=== PATIENT | female | born 1975 | race Caucasian/White ===

== ENCOUNTER 2021-12-13 09:58 | Inpatient (IN) | payer MEDICAID ==
[~2021-12-13] VITALS: Ht 144.8 cm; Wt 65.3 kg
[2021-12-13 10:03] VITALS: BP 176/99
--- NOTE | 2021-12-13 10:13 | NUR ---
Patient wheelchair assisted to bed 1.
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
[2021-12-13 11:25] LABS: BASOPHILS # (AUTO) 0.1 K/uL (0.00-0.22); BASOPHILS % (AUTO) 0.3 % (0.0-2.0); EOSINOPHILS # (AUTO) 0.1 K/uL (0-0.4); EOSINOPHILS % (AUTO) 0.4 % (0.0-4.0); HEMATOCRIT 35.7 % (36-48); HEMOGLOBIN 11.8 g/dL (12.0-16.0); LYMPHOCYTES # (AUTO) 3.1 K/uL (2.5-16.5); LYMPHOCYTES % (AUTO) 18.8 % (20.5-51.1); MEAN CORPUSCULAR HEMOGLOBIN 29 pg (27-31); MEAN CORPUSCULAR HGB CONC 33 g/dL (33-37); NEUTROPHILS # (AUTO) 12.1 K/uL (1.8-7.7); NEUTROPHILS % (AUTO) 74.5 % (42.2-75.2); PLATELET COUNT (AUTO) 528 K/uL (140-450); RED BLOOD CELL COUNT(AUTO) 4.05 MIL/uL (4.20-5.40); RED CELL DISTRIBUTION WIDTH 12.1 % (11.6-13.7); WHITE BLOOD COUNT (AUTO) 16.2 K/uL (4.8-10.8)
[2021-12-13 11:28] LABS: ALBUMIN 2.9 g/dL (3.4-5.0); ANION GAP 15.4 (8-16); CARBON DIOXIDE 26.2 mmol/L (21-32); CREATININE 0.8 mg/dL (0.6-1.3); POTASSIUM 3.6 mmol/L (3.5-5.1); TOTAL BILIRUBIN 0.4 mg/dL (0.0-1.0)
[2021-12-13] MEDS ORDERED: NACL 0.9% 2,000 ML IV ONE (11:45)
[2021-12-13] MEDS ORDERED: VANCOMYCIN PER PHARMACY MC PRN ×2 (11:45→12:45)
[2021-12-13] MEDS ORDERED: PIPERACILLIN/TAZOBACTAM 3.375 GM in DEXTROSE 5% 50 ML IV ONE (11:45)
[2021-12-13] MEDS ORDERED: MORPHINE SULFATE 4 MG/ML SYR IVP ONE (11:45)
[2021-12-13] MEDS ORDERED: ONDANSETRON 4 MG/2 ML VIAL IVP ONE (11:45)
[2021-12-13] MEDS ORDERED: VANCOMYCIN 1GM/DEXT 5% PREMIX 200 ML IV ONE (11:45)
[2021-12-13 11:59] LABS: APPEARANCE,URINE CLEAR (CLEAR); BILIRUBIN,URINE NEGATIVE (NEGATIVE); BLOOD, URINE TRACE-I (NEGATIVE); COLOR,URINE YELLOW (YELLOW); LEUKOCYTE ESTERASE ,URINE NEGATIVE (NEGATIVE); NITRITE, URINE NEGATIVE (NEGATIVE); PH,URINE 6.5 (5.0-9.0); UGLUCOSE 3+ (NEGATIVE)
[2021-12-13] MEDS ORDERED: VANCOMYCIN 1,000 MG VIAL ONE (12:04)
[2021-12-13] MEDS ORDERED: PIPERACILLIN/TAZOBACTAM 3.375 GM VIAL IV ONE (12:05)
[2021-12-13 12:15] LABS: RBC,URINE 0-5 /HPF (0-5)
[2021-12-13 12:16] LABS: WBC,URINE 0-5 /HPF (0-5)
[2021-12-13] MEDS ORDERED: ONDANSETRON 4 MG/2 ML VIAL IVP PRN (12:40)
[2021-12-13] MEDS ORDERED: LORazepam 2 MG/ML VIAL IVP PRN (12:40)
[2021-12-13] MEDS ORDERED: DOCUSATE SODIUM 100 MG GELCAP PO PRN (12:40)
[2021-12-13] MEDS ORDERED: POTASSIUM CHLORIDE 10 MEQ TABER PO PRN (12:40)
[2021-12-13] MEDS ORDERED: ZOLPIDEM 10 MG TAB PO PRN (12:40)
[2021-12-13] MEDS ORDERED: DEXTROSE 50% 50 ML SYR IVP PRN (12:45)
[2021-12-13] MEDS: NACL 0.9% 1,000 ML IV SCH ×2 (13:36→20:16)
--- NOTE | 2021-12-13 13:53 | NUR ---
WOUND PICTURES TAKEN, SIGNED BY DR GAMBOA AND PLACED IN CHART.
[2021-12-13] MEDS: MORPHINE SULFATE 2 MG/ML SYR IVP PRN ×2 (15:23→20:16)
--- NOTE | 2021-12-13 16:00 | NUR ---
PT RESTING IN RNEY NO CHANGES NOTED.
[2021-12-13] MEDS: BLOOD GLUCOSE MONITORING 1 DEV DEV FS SCH ×2 (17:15→21:08)
[2021-12-13 18:20] VITALS: BP 159/73
--- NOTE | 2021-12-13 18:20 | NUR ---
RECEIVED PATIENT FROM ER NURSE FOR CONTINUITY OF CARE. PT ADMITTED FOR CELLULITIS OF LEFT FOOT. PT IS AOX4, ABLE TO MAKE NEEDS KNOWN. ON ROOM AIR AND NO DISTRESS NOTED. SKIN IS WARM, DRY, AND NON-INTACT. NOTED WOUND ON LEFT FOOT. NO DRAINAGE NOTED. ABD IS SOFT, FLAT, AND NON-DISTENDED. BOWEL SOUNDS ACTIVE IN ALL QUADRANTS. DENIES PAIN AT THE MOMENT. PLAN OF CARE DISCUSSED. SAFETY PRECAUTIONS IN PLACE. CALL LIGHT WITHIN REACH. WILL CONTINUE TO MONITOR.
--- NOTE | 2021-12-13 19:00 | NUR ---
RECEIVED PATIENT IN BED, AWAKE, ALERT AND ORIENTED. DENIES PAIN. NO RESPIRATORY DISTRESS NOTED. LEFT FOOT WOUND NOTED, OPEN TO AIR. SKIN WARM AND DRY TO TOUCH. BED IN THE LOWEST AND LOCKED POSITION FOR SAFETY, CALL LIGHT IN REACH.
--- NOTE | 2021-12-13 19:20 | NUR ---
ENDORSED TO [employer] SUPERVISOR NURSE FOR CONTINUITY OF CARE. PT IS STABLE.
[2021-12-13 20:00] VITALS: BP 158/95
[2021-12-13] MEDS: PIPERACILLIN/TAZOBACTAM 3.375 GM in DEXTROSE 5% 50 ML IV SCH (20:16)
[2021-12-13] MEDS: INSULIN LISPRO SLIDING SCALE 100 UNITS/ML VIAL SUBQ PRN (20:17)
--- NOTE | 2021-12-13 23:02 | NUR ---
SR. CARD SPOKE WITH THE PATIENT. CLEANED WOUND AND APPLIED DRESSING. PER MD WILL PUT IN ORDERS. NO NEED FOR NPO AFTER MIDNIGHT.
[2021-12-14] VITALS: BP 151/85
--- NOTE | 2021-12-14 | NUR ---
ASSISTED PATIENT TO THE BATHROOM AND BACK IN BED, VOIDED WITHOUT DIFFICULTY. MADE COMFORTABLE IN BED. CALL LIGHT WITHIN REACH.
[2021-12-14] MEDS: MORPHINE SULFATE 2 MG/ML SYR IVP PRN ×4 (01:58→18:13)
[2021-12-14 04:00] VITALS: BP 121/69
[2021-12-14] MEDS: PIPERACILLIN/TAZOBACTAM 3.375 GM in DEXTROSE 5% 50 ML IV SCH ×3 (04:08→20:43)
--- NOTE | 2021-12-14 04:15 | NUR ---
PATIENT ASLEEP. NO S/SX OF PAIN NOR DISCOMFORT. CALL LIGHT IN REACH.
--- NOTE | 2021-12-14 06:09 | NUR ---
PATIENT COMPLAINING OF 8/10 LEFT FOOT PAIN, MEDICATED ORDERED. ALL NEEDS ATTENDED TO. SAFETY PRECAUTION IN PLACE, CALL LIGHT REMAINED WITHIN REACH.
[2021-12-14] MEDS: INSULIN LISPRO SLIDING SCALE 100 UNITS/ML VIAL SUBQ PRN ×4 (06:35→20:42)
[2021-12-14] MEDS: BLOOD GLUCOSE MONITORING 1 DEV DEV FS SCH ×4 (06:37→20:43)
--- NOTE | 2021-12-14 07:09 | NUR ---
RE-ASSESSED FOR PAIN, PATIENT IS ASLEEP AT THIS TIME. NO S/SX OF PAIN NOR DISCOMFORT. CALL LIGHT IN REACH.
[2021-12-14 07:28] LABS: ANION GAP 5.3 (8-16); CARBON DIOXIDE 25.4 mmol/L (21-32); CREATININE 0.6 mg/dL (0.6-1.3); POTASSIUM 3.7 mmol/L (3.5-5.1)
[2021-12-14 07:33] LABS: BASOPHILS # (AUTO) 0.1 K/uL (0.00-0.22); BASOPHILS % (AUTO) 0.4 % (0.0-2.0); EOSINOPHILS # (AUTO) 0.1 K/uL (0-0.4); HEMATOCRIT 26.5 % (36-48); LYMPHOCYTES # (AUTO) 3.1 K/uL (2.5-16.5); LYMPHOCYTES % (AUTO) 21.4 % (20.5-51.1); MEAN CORPUSCULAR HEMOGLOBIN 30 pg (27-31); MEAN CORPUSCULAR HGB CONC 34 g/dL (33-37); MEAN CORPUSCULAR VOLUME 87.7 fL (80-94); MONOCYTES # (AUTO) 1.2 K/uL (0.8-1.0); MONOCYTES % (AUTO) 8.4 % (1.7-9.3); NEUTROPHILS # (AUTO) 9.9 K/uL (1.8-7.7); NEUTROPHILS % (AUTO) 68.8 % (42.2-75.2); PLATELET COUNT (AUTO) 430 K/uL (140-450); RED BLOOD CELL COUNT(AUTO) 3.03 MIL/uL (4.20-5.40); RED CELL DISTRIBUTION WIDTH 12.3 % (11.6-13.7); WHITE BLOOD COUNT (AUTO) 14.4 K/uL (4.8-10.8)
[2021-12-14 08:00] VITALS: BP 133/77
[2021-12-14] MEDS: NACL 0.9% 1,000 ML IV SCH ×2 (08:00→18:12)
--- NOTE | 2021-12-14 09:30 | NUR ---
ALL SCHEDULED MEDS GIVEN. PT IS STABLE. NO DISTRESS NOTED. WILL CONTINUE TO MONITOR
[2021-12-14] MEDS: MAG SULF 2000 MG/WATER PREMIX 50 ML IV PRN (10:03)
--- NOTE | 2021-12-14 10:06 | NUR ---
PATIENT HAS BEEN SCREENED AND CATEGORIZED MODERATE NUTRITION RISK. PATIENT WILL BE SEEN WITHIN 3-5 DAYS OF ADMISSION. / FREDDY NOLAND RD
[2021-12-14 12:00] VITALS: BP 155/75
--- NOTE | 2021-12-14 12:28 | NUR ---
BS CHECK WAS 323. ADMINISTERED 8 UNITS OF INSULIN SQ PER MD ORDER.
[2021-12-14] MEDS: VANCOMYCIN 1,000 MG in DEXTROSE 5% 250 ML IV SCH (12:29)
--- NOTE | 2021-12-14 13:15 | NUR ---
ALL SCHEDULED MEDS GIVEN. PT IS STABLE. NO DISTRESS NOTED. WILL CONTINUE TO MONITOR.
--- NOTE | 2021-12-14 14:00 | NUR ---
PT COMPLAINED OF LEFT FOOT PAIN 6. ADMINISTERED PRN PAIN MEDS PER MD ORDERED.
[2021-12-14 16:00] VITALS: BP 138/68
--- NOTE | 2021-12-14 18:13 | NUR ---
PT COMPLAINED OF LEFT FOOT PAIN 6. ADMINISTERED PRN PAIN MEDS PER MD ORDERED.
--- NOTE | 2021-12-14 19:22 | NUR ---
ENDORSED TO INCENDIARY POWDER MIXER NURSE FOR CONTINUITY OF CARE. PT IS STABLE.
--- NOTE | 2021-12-14 19:30 | NUR ---
RECEIVED BEDSIDE REPORT FROM DAY SHIFT RN FOR CONTINUITY OF CARE. PT IS AWAKE. PT IS AAOX4 ON RA BULGARIAN SPEAKER. PT HAS RIGHT AC 20 GAUGE WITH NS 100 CC/HR. PT HAS LEFT FOOT 4TH TOE ULCER. PLAN OF CARE DISCUSSED. COMMUNICATION BOARD UPDATED. WILL CONTINUE TO MONITOR THE PT.
[2021-12-14 20:00] VITALS: BP 137/75
--- NOTE | 2021-12-14 20:49 | NUR ---
SCHEDULE MEDICATIONS GIVEN. NO ADVERSE REACTION NOTED. WILL CONTINUE TO MONITOR THE PT.
[2021-12-15] VITALS: BP 139/75
[2021-12-15] MEDS: MORPHINE SULFATE 2 MG/ML SYR IVP PRN ×5 (00:45→21:16)
--- NOTE | 2021-12-15 00:56 | NUR ---
PT IV ON RIGHT AC GOT INFILTRATED. NEW IV INSERTED ON LEFT AC 20 GAUGE. PATENT AND INTACT. PT COMPLAIN OF LEFT FOOT PAIN. MORPHINE GIVEN PER MD ORDER. NO OTHER COMPLAINS. WILL CONTINUE TO MONITOR THE PT.
--- NOTE | 2021-12-15 02:15 | NUR ---
PT IS SLEEPING IN BED COMFORTABLY. PT NOT IN ANY ACUTE DISTRESS. VISIBLE RISE AND CHEST FALL. CALL LIGHT WITHIN REACH. WILL CONTINUE TO MONITOR THE PT.
[2021-12-15 04:00] VITALS: BP 137/85
[2021-12-15] MEDS: NACL 0.9% 1,000 ML IV SCH ×2 (04:45→15:00)
[2021-12-15] MEDS: PIPERACILLIN/TAZOBACTAM 3.375 GM in DEXTROSE 5% 50 ML IV SCH ×3 (04:59→21:17)
--- NOTE | 2021-12-15 05:07 | NUR ---
PT COMPLAIN OF LEFT FOOT PAIN 09/06. MORPHINE GIVEN PER MD ORDER.
[2021-12-15] MEDS: INSULIN LISPRO SLIDING SCALE 100 UNITS/ML VIAL SUBQ PRN ×4 (06:36→21:23)
[2021-12-15] MEDS: BLOOD GLUCOSE MONITORING 1 DEV DEV FS SCH ×4 (06:36→21:22)
--- NOTE | 2021-12-15 07:17 | NUR ---
ENDORSED PT TO DAYSHIFT RN FOR CONTINUITY OF CARE. PT IS STABLE.
[2021-12-15 07:19] LABS: BASOPHILS # (AUTO) 0.1 K/uL (0.00-0.22); BASOPHILS % (AUTO) 0.6 % (0.0-2.0); EOSINOPHILS # (AUTO) 0.2 K/uL (0-0.4); EOSINOPHILS % (AUTO) 1.7 % (0.0-4.0); HEMATOCRIT 26.6 % (36-48); LYMPHOCYTES # (AUTO) 2.6 K/uL (2.5-16.5); LYMPHOCYTES % (AUTO) 19.9 % (20.5-51.1); MEAN CORPUSCULAR HEMOGLOBIN 30 pg (27-31); MEAN CORPUSCULAR HGB CONC 34 g/dL (33-37); MEAN CORPUSCULAR VOLUME 87.4 fL (80-94); MONOCYTES % (AUTO) 7.6 % (1.7-9.3); NEUTROPHILS # (AUTO) 9.4 K/uL (1.8-7.7); NEUTROPHILS % (AUTO) 70.2 % (42.2-75.2); PLATELET COUNT (AUTO) 446 K/uL (140-450); RED BLOOD CELL COUNT(AUTO) 3.05 MIL/uL (4.20-5.40); RED CELL DISTRIBUTION WIDTH 12.1 % (11.6-13.7); WHITE BLOOD COUNT (AUTO) 13.3 K/uL (4.8-10.8)
--- NOTE | 2021-12-15 07:26 | NUR ---
GOT REPORT FROM THE NIGHT NURSE PT SLEEPING NO SOB, IV FLUID INFUSING ORDERED.[id number]
[2021-12-15 07:37] LABS: ANION GAP 12.4 (8-16); CREATININE 0.6 mg/dL (0.6-1.3); POTASSIUM 4.4 mmol/L (3.5-5.1)
--- NOTE | 2021-12-15 07:39 | NUR ---
GOT REPORT FROM THE NIGHT NURSE PT RESTING IN BED, NO SOB.[id number]
[2021-12-15 08:00] VITALS: BP 132/82
[2021-12-15] MEDS ORDERED: SEVOFLURANE 250 ML BTL INH ONE (08:13)
[2021-12-15 12:00] VITALS: BP 164/104
[2021-12-15] MEDS: VANCOMYCIN 1,000 MG in DEXTROSE 5% 250 ML IV SCH ×2 (12:34→22:34)
[2021-12-15 16:00] VITALS: BP 130/71
[2021-12-15] MEDS: MAG SULF 2000 MG/WATER PREMIX 50 ML IV PRN (18:20)
--- NOTE | 2021-12-15 19:40 | NUR ---
GET THE REPORT FROM MORNING NURSE MALGORZATA, PATENT IS LYING ON BED, PATIENT IS ALERT ORIENTED X4, ALL FALL PRECAUTION MEASURE ARE INN PLACE, CALL LIGHT IS WITHIN THE REACH, WILL CONTINUE TO MONITOR PATIENT.
[2021-12-15 20:00] VITALS: BP 147/94
--- NOTE | 2021-12-15 21:29 | NUR ---
PATIENT IS LYING ON BED, NO ANY COMPLAIN OF SHORTNESS OF BREATH AT THIS TIME, VITAL SIGN IA WITHIN THE NORMAL RANGE,PATIENT IS COMPLAINING OF FOOT PAIN 8/10, GAVE MORPHINE 2 MG IV PRN PER DOCTOR ORDER, PATIENT BLOOD SUGAR IS 210, GAVE 4 UNIT INSULIN PER DOCTOR ORDER, ALL SCHEDULE MEDICATION IS GIVEN PER DOCTOR ORDER, CALL LIGHT IS WITHIN THE REACH, WILL CONTINUE TO MONITOR PATIENT.
[2021-12-16] VITALS: BP 145/78
--- NOTE | 2021-12-16 00:20 | NUR ---
PATIENT IS LYING ON BED, NO ANY COMPLAIN OF PAIN OR SHORTNESS OF BREATH AT THIS TIME,ALL SCHEDULE MEDICATION IS GIVEN PER DOCTOR ORDER, VITAL SIGN IS WITHIN THE NORMAL RANGE, CALL LIGHT IS WITHIN THE REACH, WILL CONTINUE TO MONITOR PATIENT.
[2021-12-16] MEDS: NACL 0.9% 1,000 ML IV SCH ×4 (00:52→20:45)
[2021-12-16] MEDS: MORPHINE SULFATE 2 MG/ML SYR IVP PRN ×3 (02:36→23:43)
--- NOTE | 2021-12-16 02:37 | NUR ---
PATIENT IS COMPLAINING OF LEFT FOOT PAIN 6/10, GAVE MORPHINE 2MG IV PRN PER DOCTOR ORDER, VITAL SIGN IS WITHIN THE NORMAL RANGE, CALL LIGHT IS WITHIN THE EACH, WILL CONTINUE TO MONITOR PATIENT.
[2021-12-16 04:00] VITALS: BP 138/82
[2021-12-16] MEDS: PIPERACILLIN/TAZOBACTAM 3.375 GM in DEXTROSE 5% 50 ML IV SCH ×3 (04:11→21:51)
--- NOTE | 2021-12-16 04:23 | NUR ---
VITAL SIGN IS WITHIN THE NORMAL RANGE,NO ANY COMPLAIN OF PAIN OR SHORTNESS OF BREATH AT THIS TIME,ALL SCHEDULE MEDICATION IS GIVEN PER DOCTOR ORDER, CALL LIGHT IS WITHIN THE REACH, WILL CONTINUE TO MONITOR PATIENT.
[2021-12-16] MEDS: BLOOD GLUCOSE MONITORING 1 DEV DEV FS SCH ×5 (06:31→21:00)
[2021-12-16] MEDS: INSULIN LISPRO SLIDING SCALE 100 UNITS/ML VIAL SUBQ PRN ×2 (06:45→17:52)
--- NOTE | 2021-12-16 06:46 | NUR ---
PATIENT BLOOD SUGAR IS 158, 2 UNIT INSULIN IS GIVEN PER DOCTOR ORDER, CALL LIGHT IS WITHIN THE REACH, WILL CONTINUE TO MONITOR PATIENT
--- NOTE | 2021-12-16 07:13 | NUR ---
GAVE THE REPORT TO MORNING NURSE MALGORZATA FOR CONTINUOS OF CARE, PATIENT IS STABLE.
--- NOTE | 2021-12-16 07:27 | NUR ---
RECEIVED REPORT FROM THE NIGHT NURSE, PT AWAKE DISCUSSED PENDING SURGERY NO SOB.[id number]
[2021-12-16 07:48] LABS: BASOPHILS # (AUTO) 0.1 K/uL (0.00-0.22); BASOPHILS % (AUTO) 0.5 % (0.0-2.0); EOSINOPHILS # (AUTO) 0.3 K/uL (0-0.4); EOSINOPHILS % (AUTO) 1.9 % (0.0-4.0); HEMATOCRIT 32.1 % (36-48); HEMOGLOBIN 10.8 g/dL (12.0-16.0); LYMPHOCYTES # (AUTO) 2.8 K/uL (2.5-16.5); LYMPHOCYTES % (AUTO) 19.5 % (20.5-51.1); MEAN CORPUSCULAR HEMOGLOBIN 30 pg (27-31); MEAN CORPUSCULAR HGB CONC 34 g/dL (33-37); MEAN CORPUSCULAR VOLUME 87.9 fL (80-94); MONOCYTES # (AUTO) 1.1 K/uL (0.8-1.0); MONOCYTES % (AUTO) 7.9 % (1.7-9.3); NEUTROPHILS # (AUTO) 9.9 K/uL (1.8-7.7); NEUTROPHILS % (AUTO) 70.2 % (42.2-75.2); PLATELET COUNT (AUTO) 476 K/uL (140-450); RED BLOOD CELL COUNT(AUTO) 3.65 MIL/uL (4.20-5.40); RED CELL DISTRIBUTION WIDTH 12.2 % (11.6-13.7); WHITE BLOOD COUNT (AUTO) 14.1 K/uL (4.8-10.8)
[2021-12-16] MEDS ORDERED: LIDOCAINE MPF 1% 10 ML ONE (08:01)
[2021-12-16] MEDS ORDERED: BUPIVACAINE-MPF 0.25% 30 ML VIAL INJ ONE (08:01)
[2021-12-16] MEDS ORDERED: PROPOFOL 200 MG/20 ML VIAL IV ONE (08:03)
[2021-12-16] MEDS ORDERED: fentaNYL citrate 0.05 MG/ML VIAL ONE (08:03)
[2021-12-16] MEDS ORDERED: MIDAZOLAM 2 MG/2 ML VIAL ONE (08:04)
[2021-12-16 08:36] LABS: ANION GAP 15.8 (8-16); CARBON DIOXIDE 23.3 mmol/L (21-32); CREATININE 0.6 mg/dL (0.6-1.3); POTASSIUM 4.1 mmol/L (3.5-5.1)
[2021-12-16] MEDS ORDERED: HYDROGEN PEROXIDE 3% 240 ML BTL TP ONE (08:37)
[2021-12-16] MEDS ORDERED: ONDANSETRON 4 MG/2 ML VIAL ONE (08:43)
[2021-12-16] MEDS ORDERED: KETOROLAC 30 MG/ML VIAL ONE (08:43)
[2021-12-16] MEDS ORDERED: METOCLOPRAMIDE 10 MG/2 ML INJ VIAL ONE (08:43)
[2021-12-16] MEDS ORDERED: HYDROmorphone 1 MG/ML AMP IVP PRN (08:55)
[2021-12-16] MEDS ORDERED: ONDANSETRON 4 MG/2 ML VIAL IVP PRN (08:55)
--- NOTE | 2021-12-16 09:31 | NUR ---
PT STILL IN [id number]
[2021-12-16] MEDS: VANCOMYCIN 1,000 MG in DEXTROSE 5% 250 ML IV SCH (10:21)
[2021-12-16] MEDS ORDERED: AMOX-999 PO (10:24)
[2021-12-16] MEDS ORDERED: METF-1253 PO (10:24)
[2021-12-16 10:43] VITALS: BP 167/94
[2021-12-16 12:00] VITALS: BP 167/94
[2021-12-16 16:00] VITALS: BP 161/85
--- NOTE | 2021-12-16 18:22 | NUR ---
PT SAID SHE IS NOT COMFORTABLE TO GO HOME TODAY AFTER SURGERY AND CONTACTED THE DR AND DR SAID TOMORROW DC OR LATE EVENING BUT THE PATIENT CHOSE TO GO TOMORROW AND THE PATIENT SAYS HER MEDICAL WILL COVER HER STAY.[id number]
--- NOTE | 2021-12-16 18:45 | NUR ---
PT COMPLAINED OF NOT ABLE TO BREATH WELL AFTER SURGERY. INSTRUCTED HER TO BREATH DEEP AND FOR SHORT TIME PUT PT IN 022L AND PROVIDED WITH SPIROMETER AND THOUGHT HER TO EXERCISE DEEP BREATHING.[id number]
[2021-12-17] VITALS: BP_SYST 147; BP_SYST 155; BP_DIAS 94
[2021-12-17] MEDS: VANCOMYCIN 1,000 MG in DEXTROSE 5% 250 ML IV SCH ×3 (00:05→23:00)
[2021-12-17] MEDS: PIPERACILLIN/TAZOBACTAM 3.375 GM in DEXTROSE 5% 50 ML IV SCH ×3 (05:00→21:54)
[2021-12-17] MEDS: NACL 0.9% 1,000 ML IV SCH ×2 (06:45→09:27)
[2021-12-17] MEDS: BLOOD GLUCOSE MONITORING 1 DEV DEV FS SCH ×4 (07:00→21:54)
[2021-12-17 08:00] VITALS: BP 147/80
--- NOTE | 2021-12-17 08:00 | NUR ---
RECEIVED REPORT FROM NIGHTSHIFT NURSE EMILIE FOR CONTINUITY OF CARE. PT IS IN STABLE CONDITION AND CURRENTLY SLEEPING, A/OX4. BREATHING EVEN, REGULAR AND UNLABORED ON 2L VIA NC. PT IS CONTINENT OF THE BOWEL AND BLADDER WITH A BEDSIDE COMMODE. DRESSING ON LEFT FOOT CLEAN, DRY, AND INTACT. PER NIGHTSHIFT, PT IS S/P LEFT 4TH DIGIT AMPUTATION AND DEBRIDEMENT. DR. CARD HAS NOT FOLLOWED UP.
--- NOTE | 2021-12-17 08:36 | NUR ---
PT COMPLAINED OF MODERATE PAIN 6/10 IN LEFT FOOT. ADMINISTERED PRN TYLENOL.
[2021-12-17] MEDS: MORPHINE SULFATE 2 MG/ML SYR IVP PRN ×3 (09:32→21:15)
--- NOTE | 2021-12-17 09:36 | NUR ---
PT COMPLAINED OF PAIN CONTINUING ON LEFT FOOT. ADMINISTERED PRN MORPHINE FOR PAIN LEVEL 7/10.
[2021-12-17 09:53] LABS: BASOPHILS # (AUTO) 0.1 K/uL (0.00-0.22); BASOPHILS % (AUTO) 0.4 % (0.0-2.0); EOSINOPHILS # (AUTO) 0.1 K/uL (0-0.4); EOSINOPHILS % (AUTO) 0.7 % (0.0-4.0); HEMATOCRIT 28.6 % (36-48); HEMOGLOBIN 9.5 g/dL (12.0-16.0); LYMPHOCYTES # (AUTO) 2.3 K/uL (2.5-16.5); LYMPHOCYTES % (AUTO) 14.1 % (20.5-51.1); MEAN CORPUSCULAR HEMOGLOBIN 29 pg (27-31); MEAN CORPUSCULAR HGB CONC 33 g/dL (33-37); MONOCYTES # (AUTO) 1.5 K/uL (0.8-1.0); NEUTROPHILS # (AUTO) 12.4 K/uL (1.8-7.7); NEUTROPHILS % (AUTO) 75.8 % (42.2-75.2); PLATELET COUNT (AUTO) 555 K/uL (140-450); RED BLOOD CELL COUNT(AUTO) 3.29 MIL/uL (4.20-5.40); RED CELL DISTRIBUTION WIDTH 12.2 % (11.6-13.7); WHITE BLOOD COUNT (AUTO) 16.4 K/uL (4.8-10.8)
[2021-12-17 10:00] LABS: ANION GAP 13.2 (8-16); CARBON DIOXIDE 26.7 mmol/L (21-32); CREATININE 0.7 mg/dL (0.6-1.3); POTASSIUM 4.9 mmol/L (3.5-5.1)
--- NOTE | 2021-12-17 11:00 | NUR ---
PT VISUALLY ASSESSED, CURRENTLY SLEEPING, NO SIGNS OF PAIN OR DISTRESS NOTED AT THIS TIME.
[2021-12-17] MEDS: INSULIN LISPRO SLIDING SCALE 100 UNITS/ML VIAL SUBQ PRN ×3 (11:32→21:54)
--- NOTE | 2021-12-17 13:50 | NUR ---
PT COMPLAINED OF SEVERE PAIN IN LEFT FOOT 8/10, MEDICATED PRN MORPHINE.
--- NOTE | 2021-12-17 15:00 | NUR ---
PT IV INFILTRATED, NEW IV INSERTED IN RIGHT FOREARM ASSISTED BY FANNY WADE.
[2021-12-17 16:00] VITALS: BP 138/72
--- NOTE | 2021-12-17 18:00 | NUR ---
PT VISUALLY ASSESSED. NO SIGNS OF PAIN OR DISTRESS NOTED AT THIS TIME.
--- NOTE | 2021-12-17 19:26 | NUR ---
[facility] FOR CONTINUITY OF CARE. PT IN STABLE CONDITION.
--- NOTE | 2021-12-17 19:35 | NUR ---
RECEIVED REPORT FROM DAY RN FOR CONTINUITY OF CARE.AWAKE, ALERT AND ORIENTED X4. BREATHING EVEN AND UNLABORED ON 2L VIA NC. IV ON R FA G22, INFUSING FLUIDS PER MD ORDERS.DRESSING ON LEFT FOOT CLEAN, DRY, AND INTACT. LF FOOT ELEVATED WITH 2 PILLOWS. ALL PRECAUTIONS IN PLACE. CALL LIGHT WITHIN REACH.WILL CONTINUE TO MONITOR.
--- NOTE | 2021-12-17 21:15 | NUR ---
PT COMPLAINED OF L FOOT PAIN.PRN PAIN MED GIVEN.
--- NOTE | 2021-12-17 22:00 | NUR ---
SCHEDULED MEDICATIONS GIVEN. PT TOLERATED WELL.WILL CONTINUE TO MONITOR.
--- NOTE | 2021-12-17 22:00 | NUR ---
BLOOD SUGAR WAS 201.INSULIN COVERAGE GIVEN.
--- NOTE | 2021-12-17 23:50 | NUR ---
SCHEDULED ANTIBIOTICS GIVEN. PT TOLERATED WELL. NO DISTRESS NOTED.
[2021-12-18] VITALS: BP 145/72
[2021-12-18] MEDS: NACL 0.9% 1,000 ML IV SCH ×3 (02:15→23:40)
--- NOTE | 2021-12-18 02:44 | NUR ---
PATIENT WET ON BED. CLEANED AND CHANGED BEDDINGS. PT TOLERATED WELL. WILL CONTINUE TO MONITOR.
[2021-12-18] MEDS: PIPERACILLIN/TAZOBACTAM 3.375 GM in DEXTROSE 5% 50 ML IV SCH ×3 (05:35→20:12)
[2021-12-18] MEDS: ACETAMINOPHEN 325 MG TAB PO PRN ×2 (06:30→20:15)
[2021-12-18] MEDS: BLOOD GLUCOSE MONITORING 1 DEV DEV FS SCH ×4 (06:31→20:12)
[2021-12-18 07:38] LABS: ANION GAP 13.5 (8-16); CARBON DIOXIDE 25.3 mmol/L (21-32); POTASSIUM 3.8 mmol/L (3.5-5.1)
--- NOTE | 2021-12-18 07:38 | NUR ---
RECEIVED REPORT FROM NIGHTSHIFT NURSE ANGELITA FOR CONTINUITY OF CARE. PT CURRENTLY SLEEPING, A/OX4, BREATHING EVEN, REGULAR AND UNLABORED ON 2L VIA NC. PT IS CONTINENT OF THE BOWEL AND BLADDER, HOWEVER, NIGHTSHIFT REPORT EPISODE OF INCONTINENCE OVER NIGHT. PT SKIN IS INTACT, DRESSING IS CLEAN, DRY AND INTACT. NO SIGNS OF PAIN OR DISTRESS NOTED AT THIS TIME.
[2021-12-18 07:49] LABS: BASOPHILS # (AUTO) 0.1 K/uL (0.00-0.22); BASOPHILS % (AUTO) 0.6 % (0.0-2.0); EOSINOPHILS # (AUTO) 0.2 K/uL (0-0.4); EOSINOPHILS % (AUTO) 1.2 % (0.0-4.0); HEMATOCRIT 25.7 % (36-48); HEMOGLOBIN 8.6 g/dL (12.0-16.0); LYMPHOCYTES # (AUTO) 1.7 K/uL (2.5-16.5); LYMPHOCYTES % (AUTO) 13.7 % (20.5-51.1); MEAN CORPUSCULAR HEMOGLOBIN 30 pg (27-31); MEAN CORPUSCULAR HGB CONC 33 g/dL (33-37); MEAN CORPUSCULAR VOLUME 88.5 fL (80-94); MONOCYTES # (AUTO) 1.2 K/uL (0.8-1.0); MONOCYTES % (AUTO) 9.9 % (1.7-9.3); NEUTROPHILS # (AUTO) 9.4 K/uL (1.8-7.7); NEUTROPHILS % (AUTO) 74.6 % (42.2-75.2); PLATELET COUNT (AUTO) 457 K/uL (140-450); RED CELL DISTRIBUTION WIDTH 12.4 % (11.6-13.7); WHITE BLOOD COUNT (AUTO) 12.6 K/uL (4.8-10.8)
[2021-12-18 08:00] VITALS: BP 163/99
[2021-12-18] MEDS: MORPHINE SULFATE 2 MG/ML SYR IVP PRN ×2 (09:19→15:20)
--- NOTE | 2021-12-18 09:19 | NUR ---
PT WAS VISIBLY ANXIOUS AND COMPLAINED OF 9/10 PAIN IN LEFT FOOT, MEDICATED PRN MORPHINE. REASSESSED PT'S BREATHING AND SATURATION, SPO2 96% ON ROOM AIR. PT VISIBLY CALMER AFTER MORPHINE ADMINISTRATION.
--- NOTE | 2021-12-18 11:00 | NUR ---
PT VISUALLY ASSESSED, CURRENTLY SLEEPING. NO SIGNS OF PAIN OR DISTRESS NOTED AT THIS TIME.
[2021-12-18] MEDS: VANCOMYCIN 1,000 MG in DEXTROSE 5% 250 ML IV SCH ×2 (11:02→23:40)
[2021-12-18] MEDS: INSULIN LISPRO SLIDING SCALE 100 UNITS/ML VIAL SUBQ PRN ×3 (12:17→20:13)
[2021-12-18] MEDS ORDERED: VANCOMYCIN PER PHARMACY MC PRN (12:55)
--- NOTE | 2021-12-18 14:13 | NUR ---
NOTIFIED DR. CARROLL OF CXR RESULTS PERTAINING RIGHT LOWER LOBE PNEUMONIA. BREATHING TREATMENTS, SPUTUM CULTURE, AND COVID TEST ORDERED. PT MOVED TO RM 116 TO INITIATE DROPLET PRECAUTIONS UNTIL COVID IS RULED OUT. PT IN STABLE CONDITION.
--- NOTE | 2021-12-18 15:17 | NUR ---
PT COMPLAINED OF PAIN IN LEFT FOOT. MEDICATED PRN MORPHINE.
--- NOTE | 2021-12-18 15:20 | NUR ---
PT COMPLAINED OF PAIN IN LEFT FOOT, MEDICATED PRN MORPHINE.
--- NOTE | 2021-12-18 15:38 | NUR ---
12/18/21 RD INITIAL ASSESSMENT COMPLETED PLEASE REFER TO NUTRITION ASSESSMENT UNDER CARE ACTIVITY FOR ESTIMATED NUTRITIONAL NEEDS. 1. RECOMMEND CCHO 60 GM, PROSOURCE BID FOR NUTRITION THERAPY FOR WOUND HEALING, AND GLUCERNA BID FOR NUTRITION SUPPORT TOLERATED 2. MONITOR PO INTAKE AND LAB VALUES 3. PROVIDED NUTRITION EDUCATION WITH HANDOUTS FOR DIABETES. 4. RD TO FOLLOW-UP 3-5 DAYS, MODERATE RISK REVIEWED BY FREDDY NOLAND RD
[2021-12-18 16:00] VITALS: BP 150/67
--- NOTE | 2021-12-18 17:36 | NUR ---
VISUALLY ASSESSED PT, GAVE INSULIN PER SLIDING SCALE. PT REQUESTED PAIN MEDICATION, I REMINDED PT OF RECENT MORPHINE ADMINISTRATION. PT BEGAN GETTING ANXIOUS AND TALKING EXCESSIVELY, SPO2 WENT DOWN TO 89% ON ROOM AIR. DIRECTED PT TO TAKE DEEP BREATHS, PT KEPT TAKING SHALLOW BREATHING AND KEPT TALKING EXCESSIVELY. REDIRECTED PT TO STOP TALKING, TAKE DEEPER BREATHS AND TO PERFORM RETURN DEMONSTRATION. PT WAS ABLE TO RETURN DEMONSTRATION, PT SPO2 96% ON ROOM AIR, PT VISIBLY CALMED, STATED SHE FELT BETTER.
--- NOTE | 2021-12-18 19:30 | NUR ---
[facility] FOR CONT[facility]ITY OF CARE. PT IN STABLE CONDITION.
--- NOTE | 2021-12-18 19:31 | NUR ---
RECEIVED REPORT FROM DAY RN FOR CONTINUITY OF CARE.AWAKE, ALERT AND ORIENTED X4. BREATHING EVEN AND UNLABORED ON ROOM AIR. IV ON R FA G22, INFUSING FLUIDS PER MD ORDERS.DRESSING ON LEFT FOOT CLEAN, DRY, AND INTACT. LF FOOT ELEVATED WITH 2 PILLOWS. ALL PRECAUTIONS IN PLACE. CALL LIGHT WITHIN REACH.WILL CONTINUE TO MONITOR.
--- NOTE | 2021-12-18 20:16 | NUR ---
SCHEDULED ANTIBIOTICS GIVEN. PT TOLERATED WELL. NO DISTRESS NOTED. BLOOD SUGAR 177. INSULIN COVERAGE GIVEN.
[2021-12-18] MEDS: ALBUTEROL SULFATE/IPRATROPIU 3 ML SOL IH SCH (20:23)
--- NOTE | 2021-12-18 20:39 | NUR ---
PT PRESENTS LAYING IN BED, HOB ELEVATED, NO SINGS OF RESPIRATORY DISTRESS NOTED AT THIS TIME PT IS ON ROOM AIR. PT DEMONSTRATES STRONG PRODUCTIVE COUGH, ADMINISTERED HHN TX VIA SVN PLUS MASK WITH NO ADVERSE EFFECTS NOTED. WILL CONTINUE TO MONITOR.
--- NOTE | 2021-12-18 22:30 | NUR ---
ENCOURAGED PATIENT TO USE INCENTIVE SPIROMETRY. INSTRUCTED PT HOW TO COLLECT SPUTUM SAMPLE AND PROVIDED SPECIMEN BOTTLE.PT VERBALIZED UNDERSTANDING.
--- NOTE | 2021-12-18 23:45 | NUR ---
SCHEDULED ANTIBIOTICS GIVEN. PT TOLERATED WELL. WILL CONTINUE TO MONITOR.
[2021-12-19] VITALS: BP 149/78
--- NOTE | 2021-12-19 02:30 | NUR ---
PATIENT ASLEEP. NO S/SX OF DISTRESS.. CALL LIGHT IN REACH.WILL CONTINUE TO MONITOR.
[2021-12-19] MEDS: PIPERACILLIN/TAZOBACTAM 3.375 GM in DEXTROSE 5% 50 ML IV SCH ×2 (04:12→14:20)
[2021-12-19] MEDS: MORPHINE SULFATE 2 MG/ML SYR IVP PRN (04:12)
--- NOTE | 2021-12-19 05:00 | NUR ---
SCHEDULED ANTIBIOTICS GIVEN. PT TOLERATED WELL. WILL CONTINUE TO MONITOR.
[2021-12-19] MEDS: BLOOD GLUCOSE MONITORING 1 DEV DEV FS SCH ×2 (06:38→11:28)
[2021-12-19] MEDS: INSULIN LISPRO SLIDING SCALE 100 UNITS/ML VIAL SUBQ PRN ×2 (06:38→11:51)
--- NOTE | 2021-12-19 07:06 | NUR ---
PT IS STABLE. NO S/SX OF DISTRESS NOTED. ALL NEEDS MET. ALL PRECAUTIONS IN PLACE.CALL LIGHT WITHIN REACH. WILL ENDORSE TO AM SHIFT NURSE.
[2021-12-19] MEDS: ALBUTEROL SULFATE/IPRATROPIU 3 ML SOL IH SCH ×2 (07:41→13:40)
[2021-12-19] MEDS: NACL 0.9% 1,000 ML IV SCH (08:45)
[2021-12-19] MEDS: VANCOMYCIN 1,000 MG in DEXTROSE 5% 250 ML IV SCH (11:24)
[2021-12-19 11:34] LABS: BASOPHILS # (AUTO) 0.1 K/uL (0.00-0.22); BASOPHILS % (AUTO) 0.4 % (0.0-2.0); EOSINOPHILS # (AUTO) 0.1 K/uL (0-0.4); EOSINOPHILS % (AUTO) 0.6 % (0.0-4.0); HEMATOCRIT 26.4 % (36-48); HEMOGLOBIN 8.6 g/dL (12.0-16.0); LYMPHOCYTES # (AUTO) 1.4 K/uL (2.5-16.5); LYMPHOCYTES % (AUTO) 11.2 % (20.5-51.1); MEAN CORPUSCULAR HEMOGLOBIN 29 pg (27-31); MEAN CORPUSCULAR HGB CONC 33 g/dL (33-37); MEAN CORPUSCULAR VOLUME 89.4 fL (80-94); MONOCYTES # (AUTO) 0.8 K/uL (0.8-1.0); MONOCYTES % (AUTO) 6.4 % (1.7-9.3); NEUTROPHILS # (AUTO) 10.5 K/uL (1.8-7.7); NEUTROPHILS % (AUTO) 81.4 % (42.2-75.2); PLATELET COUNT (AUTO) 546 K/uL (140-450); RED BLOOD CELL COUNT(AUTO) 2.95 MIL/uL (4.20-5.40); RED CELL DISTRIBUTION WIDTH 12.4 % (11.6-13.7); WHITE BLOOD COUNT (AUTO) 12.9 K/uL (4.8-10.8)
[2021-12-19 11:43] LABS: ANION GAP 14.6 (8-16); CARBON DIOXIDE 24.7 mmol/L (21-32); CREATININE 1.2 mg/dL (0.6-1.3); POTASSIUM 4.3 mmol/L (3.5-5.1)
[2021-12-19] MEDS: ACETAMINOPHEN 325 MG TAB PO PRN (14:59)
[2021-12-19 16:35] VITALS: BP 169/99
--- NOTE | 2021-12-19 17:45 | NUR ---
pt given discharge instructions concerning meds, follow up visit with her doctor. pt verbalized understanding and signed papers. pt signed belongings list. discharged with daughter to home via auto. left floor per w/c in no distress. vss.
== END 2021-12-19 18:00 | disposition home or self-care (01) | DRG 710 ==
LOC: MED 09:58 → MTU 12:40
PROVIDERS: ADMIT Family Medicine; ATTEND Family Medicine
PROC: 0Y6W0Z1 Detachment at Left 4th Toe, High, Open Approach (ICD-10-PCS; principal; 2021-12-10)
DX: A41.9 Sepsis, unspecified organism (principal); E11.00 Type 2 diabetes mellitus with hyperosmolarity without nonketotic hyperglycemic-hyperosmolar coma (NKHHC); J69.0 Pneumonitis due to inhalation of food and vomit; E11.52 Type 2 diabetes mellitus with diabetic peripheral angiopathy with gangrene; I96 Gangrene, not elsewhere classified; E44.0 Moderate protein-calorie malnutrition; E87.1 Hypo-osmolality and hyponatremia; E11.621 Type 2 diabetes mellitus with foot ulcer; L03.116 Cellulitis of left lower limb; L97.428 Non-pressure chronic ulcer of left heel and midfoot with other specified severity; E87.8 Other disorders of electrolyte and fluid balance, not elsewhere classified; Z20.822 Contact with and (suspected) exposure to COVID-19; R74.01 Elevation of levels of liver transaminase levels; D75.839 Thrombocytosis, unspecified; D64.9 Anemia, unspecified; E11.65 Type 2 diabetes mellitus with hyperglycemia; Z79.899 Other long term (current) drug therapy; Z68.31 Body mass index [BMI] 31.0-31.9, adult
CPT/HCPCS: 36415; 71045; 73630; 73660; 73700; 74018; 80048; 80053; 80202; 81001; 82550; 82553; 82948; 83605; 83735; 83874; 83880; 84484; 84702; 85025; 87040; 87070; 87075; 87086; 87205; 87635-QW; 88305; 88311; 89220; 93005; 93925; 94640; 96365; 96367; 96375; 99285; J1815; J1885; J2001; J2250; J2270; J2405; J2543; J2704; J2765; J3010; J3370; J3475; J3490; J7030; J7060; Q0092